=== PATIENT | male | born 1960 | race Caucasian/White ===

== ENCOUNTER → 2017-05-04 | Outpatient (CLI) | payer BC, MEDICARE ==
[~2017-05-04] MED LIST: ATIVAN-DPS2 MG PO; CALTRATE-600 D600 MG PO; CURCUMIN250 GM PO; ELAVIL-DPS100 MG PO; FOLIC ACID0.4 MG PO; NORCO 7.5-3251 EACH PO; PAROXETINE HCL20 MG PO; PRILOSEC DPS20 MG PO; QUETIAPINE FUMA50 MG PO; REMICADE100 MG IV; THERA1 EACH PO; VITAMIN D-32000 UNI1 PO
== END | disposition home or self-care (01) ==
LOC: RAD.S 10:33
DX: R91.1 Solitary pulmonary nodule (principal)